=== PATIENT | female | born 1985 | race Caucasian/White ===

== ENCOUNTER 2017-01-10 10:57 | Emergency (ER) | payer SELFPAY ==
[~2017-01-10 10:57] MED LIST: BACTRIM DS TABL1 TAB PO; CIPRO500 MG PO; CLINDAMYCIN HC300 M2 PO; DARVOCET-N 1001 TAB PO; MACROBID 100 M100 MG PO; NO HOME MEDS; NORCO 5-325 TA1 EACH PO; PRENATAL1 EACH PO; PRENATAL1 TAB; ZOFRAN ODT4 MG/UDTAB PO
== END 2017-01-10 12:16 ==
LOC: EDMED 10:57
PROC: 2W3JX1Z Immobilization of Right Finger using Splint (ICD-10-PCS; principal; 2017-01-10)
DX: S63.632A Sprain of interphalangeal joint of right middle finger, initial encounter (principal); Z90.49 Acquired absence of other specified parts of digestive tract; X50.1XXA Overexertion from prolonged static or awkward postures, initial encounter; Y93.72 Activity, wrestling; Y99.8 Other external cause status